=== PATIENT | male | born 1970 | race African-American/Black ===

== ENCOUNTER 2019-04-07 05:41 | Emergency (ER) | payer BC ==
[~2019-04-07] VITALS: Ht 172.7 cm; Wt 89.5 kg
[~2019-04-07 05:41] MED LIST: LORTAB 5/500 501 TAB PO; NO HOME MEDICATIONS; ZITHROMAX 250M250 MG PO
[2019-04-07 06:36] LABS: COLLECTION METHOD CLEAN CATCH
[2019-04-07 06:47] LABS: BASO % 0.4 % (0.0-2.0); EOS # 0.1 (0.0-0.7); GRAN # 3.1 (1.4-6.5); GRAN % 58.7 % (42.2-75.2); HEMATOCRIT 42.8 % (42.0-52.0); HEMOGLOBIN 14.7 g/dl (13.5-18.0); LYMPH # 1.6 (1.2-3.4); LYMPH % 31.3 % (20.0-51.0); MEAN CELL VOLUME 89 fl (80.0-100.0); MEAN CORPUSCULAR HEMOGLOBIN 31 pg (27.0-31.0); MEAN CORPUSCULAR HGB CONC 34 g/dl (33.0-37.0); MEAN PLATELET VOLUME 10.4 fl (7.4-10.4); MONO # 0.4 (0.1-0.6); MONO % 8.4 % (1.7-9.3); PLATELET COUNT 257 K/mm3 (130-400); RED BLOOD COUNT 4.82 M/mm3 (4.20-5.60); REDCELL DISTRIBUTION WIDTH-CV 13.2 % (11.5-14.5)
[2019-04-07 06:48] LABS: MUCOUS Present /lpf; PH 5 (5-8); PROTHROMBIN TIME 11.7 SECONDS (9.7-12.8); SQUAMOUS EPITHELIAL 0-2 /hpf; URINE APPEARANCE Clear; URINE BACTERIA None Seen /hpf; URINE BILIRUBIN Negative (NEGATIVE); URINE BLOOD Negative (NEGATIVE); URINE COLOR Yellow; URINE GLUCOSE Negative (NEGATIVE); URINE KETONE Negative (NEGATIVE); URINE LEUKOCYTE ESTERASE Trace (NEGATIVE); URINE NITRATE Negative (NEGATIVE); URINE PROTEIN(semi-quant) 1+ (NEGATIVE)
[2019-04-07 06:50] LABS: PARTIAL THROMBOPLASTIN TIME 33.2 SECONDS (26.0-37.0)
[2019-04-07 07:20] LABS: ALBUMIN 4.5 gm/dL (3.5-5.0); BILIRUBIN,TOTAL 0.5 mg/dL (0.0-1.0); CALCIUM 9.1 mg/dL (8.4-10.2); CREATININE, serum 0.95 (0.66-1.25); MAGNESIUM 2.2 mg/dL (1.6-2.3); POTASSIUM 3.8 mmol/L (3.4-5.0)
[2019-04-07] MEDS ORDERED: NEXIUM 20MG20 MG PO ×2 (07:31)
[2019-04-07] MEDS ORDERED: OMNICEF 300MG300 MG PO (07:52)
[2019-04-07 08:03] LABS: C-REACTIVE PROTEIN 0.8 mg/dL (0.0-0.9)
[2019-04-07] MEDS ORDERED: ZOFRAN ODT8 MG PO (08:26)
[2019-04-07] MEDS ORDERED: BENTYL 10MG10 MG/CAP PO (08:26)
[2019-04-07] MEDS ORDERED: PROTONIX 40MG T40 MG PO (08:28)
[2019-04-07 08:41] VITALS: BP 120/80; PULSE 63; TEMP 97
== END 2019-04-07 09:20 | disposition home or self-care (01) ==
LOC: COL.ER 05:41
PROVIDERS: Emergency Medicine
DX: K92.0 Hematemesis (principal); R10.13 Epigastric pain; F17.210 Nicotine dependence, cigarettes, uncomplicated
CPT/HCPCS: A4216; C9113; J0696; J2405; J7030

== ENCOUNTER 2019-05-09 10:30 | Emergency (ER) | payer BC ==
[~2019-05-09] VITALS: Ht 172.7 cm; Wt 84.0 kg
[~2019-05-09 10:30] MED LIST changes: +BENTYL 10MG10 MG/CAP PO; +NEXIUM 20MG20 MG PO; +OMNICEF 300MG300 MG PO; +PROTONIX 40MG T40 MG PO; +ZOFRAN ODT8 MG PO
[2019-05-09 10:48] VITALS: BP 166/85
[2019-05-09] MEDS ORDERED: TAMIFLU 75MG75 MG PO (14:06)
[2019-05-09 14:16] VITALS: PULSE 73; TEMP 98.3
== END 2019-05-09 14:16 | disposition home or self-care (01) ==
LOC: COL.ER 10:30
DX: J11.1 Influenza due to unidentified influenza virus with other respiratory manifestations (principal); F17.290 Nicotine dependence, other tobacco product, uncomplicated